=== PATIENT | female | born 1985 | race Caucasian/White ===

== ENCOUNTER 2020-09-27 07:43 | Emergency (ER) | payer BC ==
[~2020-09-27] VITALS: Ht 157.5 cm; Wt 41.7 kg
[2020-09-27] MEDS ORDERED: SODIUM CHLORIDE 0.9% 1000ML 1,000 ML IV STA (08:02)
[2020-09-27] MEDS ORDERED: PANTOPRAZOLE 40 MG 10ML VIAL IV STA (08:02)
[2020-09-27] MEDS ORDERED: ONDANSETRON HCL INJ 2MG/ML 2ML 2 MG/ML VIAL IV STA (08:02)
[2020-09-27] MEDS ORDERED: DIPHENHYDRAMINE HCL INJ 50 MG/ML VIAL IV ONE (08:15)
[2020-09-27] MEDS ORDERED: METOCLOPRAMIDE HCL 10 MG/2ML VIAL IV ONE (08:15)
[2020-09-27] MEDS ORDERED: SODIUM CHLORIDE 0.9% 50ML 50 ML ONE (08:33)
[2020-09-27] MEDS ORDERED: IOPAMIDOL 370 MG/ML 200 ML INFUS..BTL INJ ONE (08:33)
[2020-09-27 08:35] LABS: BASOPHILS % 0.1 % (0.0-1.0); HEMATOCRIT 40.1 % (34.2-44.1); LYMPHOCYTES # (AUTO) 0.7 (1.0-3.2); LYMPHOCYTES % 7.9 % (18.0-39.1); MEAN CORPUSCULAR HEMOGLOBIN 30.5 pg (28-32); MEAN CORPUSCULAR HGB CONC 34.9 g/dL (31-35); MEAN CORPUSCULAR VOLUME 87.4 fL (81-99); MONOCYTES # (AUTO) 0.2 (0.2-0.8); MONOCYTES % 2.5 % (4.4-11.3); NEUTROPHILS # (AUTO) 7.7 (2.1-6.9); NEUTROPHILS % 89.2 % (38.7-80.0); PLATELET COUNT 209 x10e3/uL (140-360); RED BLOOD COUNT 4.59 x10e6/uL (3.6-5.1); RED CELL DISTRIBUTION WIDTH 11.8 % (11.7-14.4)
[2020-09-27 08:45] LABS: CLARITY,URINE CLEAR (CLEAR); COLOR,URINE YELLOW (YELLOW); KETONES,URINE 2+ (NEGATIVE); LEUKOCYTE ESTERASE ,URINE NEGATIVE (NEGATIVE); NITRITE,URINE NEGATIVE (NEGATIVE); PROTEIN,URINE DIPSTICK 2+ (NEGATIVE); URINE UROBILINOGEN 0.2 mg/dL (0.2 - 1)
[2020-09-27 08:57] LABS: ALANINE AMINOTRANSFERASE 8 IU/L (0-55); ALBUMIN 4.7 g/dL (3.5-5.0); ALBUMIN/GLOBULIN RATIO 1.6 (0.8-2.0); ALKALINE PHOSPHATASE 56 IU/L (40-150); ANION GAP 18.3 mmol/L (8-16); BLOOD UREA NITROGEN 12 mg/dL (7-26); BUN/CREATININE RATIO 16 (6-25); CALCIUM 9.4 mg/dL (8.4-10.2); CARBON DIOXIDE 22 mmol/L (22-29); CHLORIDE 99 mmol/L (98-107); CREATINE KINASE 38 IU/L (29-168); CREATININE, SERUM 0.74 mg/dL (0.57-1.11); EST GLOMERULAR FILTRATION RATE > 60 ML/MIN (60-); GLUCOSE 128 mg/dL (74-118); POTASSIUM 3.3 mmol/L (3.5-5.1); SODIUM 136 mmol/L (136-145)
[2020-09-27 09:02] LABS: BACTERIA,URINE RARE /HPF; EPITHELIAL CELLS,URINE FEW /LPF; RBC,URINE 0-5 /HPF (0-5)
[2020-09-27] MEDS ORDERED: LACTATED RINGER'S 1,000 ML INJ ONE (10:45)
[2020-09-27] MEDS ORDERED: ZOFRAN4 MG SL (11:21)
[2020-09-27] MEDS ORDERED: REGLAN10 MG PO (11:21)
[2020-09-27] MEDS ORDERED: PANTOPRAZOLE SO40 MG PO (11:21)
[2020-09-27 12:38] VITALS: BP 91/57
== END 2020-09-27 12:40 | disposition home or self-care (01) ==
LOC: ER 08:00
DX: R11.2 Nausea with vomiting, unspecified (principal); R19.7 Diarrhea, unspecified; R10.11 Right upper quadrant pain
CPT/HCPCS: 36415; 74177; 80053; 81001; 81025; 82550; 82553; 83690; 84484; 85025; 99284; C9113; J1200; J2405; J2765; J7030; J7121; Q9967

== ENCOUNTER 2020-11-26 14:12 | Emergency (ER) | payer BC ==
[~2020-11-26] VITALS: Ht 157.5 cm; Wt 41.7 kg
[~2020-11-26 14:12] MED LIST: PANTOPRAZOLE SO40 MG PO; REGLAN10 MG PO; ZOFRAN4 MG SL
[2020-11-26] MEDS ORDERED: HALOPERIDOL LACTATE 5 MG/ML VIAL IV ONE (15:45)
[2020-11-26] MEDS ORDERED: HALOPERIDOL LACTATE 5 MG/ML VIAL ONE (15:50)
[2020-11-26 16:08] LABS: BASOPHILS % 0.1 % (0.0-1.0); HEMOGLOBIN 14.2 g/dL (12.0-16.0); LYMPHOCYTES # (AUTO) 0.6 (1.0-3.2); LYMPHOCYTES % 5.9 % (18.0-39.1); MEAN CORPUSCULAR HEMOGLOBIN 30.5 pg (28-32); MEAN CORPUSCULAR HGB CONC 34.6 g/dL (31-35); MONOCYTES # (AUTO) 0.4 (0.2-0.8); MONOCYTES % 3.3 % (4.4-11.3); NEUTROPHILS # (AUTO) 9.6 (2.1-6.9); NEUTROPHILS % 90.3 % (38.7-80.0); PLATELET COUNT 246 x10e3/uL (140-360); RED BLOOD COUNT 4.66 x10e6/uL (3.6-5.1); RED CELL DISTRIBUTION WIDTH 12.2 % (11.7-14.4)
[2020-11-26 16:40] LABS: ALANINE AMINOTRANSFERASE 7 IU/L (0-55); ALBUMIN 4.9 g/dL (3.5-5.0); ALBUMIN/GLOBULIN RATIO 1.3 (0.8-2.0); ALKALINE PHOSPHATASE 75 IU/L (40-150); ANION GAP 19.3 mmol/L (8-16); BLOOD UREA NITROGEN 14 mg/dL (7-26); BUN/CREATININE RATIO 19 (6-25); CALCIUM 9.8 mg/dL (8.4-10.2); CARBON DIOXIDE 24 mmol/L (22-29); CHLORIDE 99 mmol/L (98-107); CREATININE, SERUM 0.75 mg/dL (0.57-1.11); EST GLOMERULAR FILTRATION RATE > 60 ML/MIN (60-); GLUCOSE 90 mg/dL (74-118); POTASSIUM 3.3 mmol/L (3.5-5.1); SODIUM 139 mmol/L (136-145)
[2020-11-26] MEDS ORDERED: HALDOL1 MG PO (17:03)
== END 2020-11-26 17:47 | disposition home or self-care (01) ==
LOC: ER 16:22
DX: R11.2 Nausea with vomiting, unspecified (principal); R50.9 Fever, unspecified; R10.13 Epigastric pain
CPT/HCPCS: 36415; 80053; 83690; 84702; 85025; 99284; J1630

== ENCOUNTER 2021-06-13 07:41 | Emergency (ER) | payer BC ==
[~2021-06-13] VITALS: Ht 157.5 cm; Wt 41.7 kg
[~2021-06-13 07:41] MED LIST changes: +HALDOL1 MG PO
[2021-06-13] MEDS ORDERED: SODIUM CHLORIDE 0.9% 1000ML 1,000 ML IV STA (07:45)
[2021-06-13] MEDS ORDERED: ONDANSETRON HCL INJ 2MG/ML 2ML 2 MG/ML VIAL IV PRN (07:45)
[2021-06-13] MEDS ORDERED: PHENERGAN SUPP25 MG RC (07:58)
[2021-06-13] MEDS ORDERED: PROMETHAZINE 12.5MG/ NACL 0.9% 12.5 MG/50 ML BAG IV ONE (08:00)
[2021-06-13] MEDS ORDERED: PANTOPRAZOLE SO40 MG PO (08:00)
[2021-06-13] MEDS ORDERED: HALOPERIDOL1 MG PO (08:05)
[2021-06-13] MEDS ORDERED: HALOPERIDOL LACTATE 5 MG/ML VIAL IV ONE (08:15)
[2021-06-13 08:31] LABS: BASOPHILS % 0.3 % (0.0-1.0); HEMATOCRIT 39.4 % (34.2-44.1); HEMOGLOBIN 13.5 g/dL (12.0-16.0); LYMPHOCYTES # (AUTO) 0.7 (1.0-3.2); LYMPHOCYTES % 5.9 % (18.0-39.1); MEAN CORPUSCULAR HEMOGLOBIN 30.8 pg (28-32); MEAN CORPUSCULAR HGB CONC 34.3 g/dL (31-35); MEAN CORPUSCULAR VOLUME 89.7 fL (81-99); MONOCYTES # (AUTO) 0.3 (0.2-0.8); NEUTROPHILS % 90.4 % (38.7-80.0); PLATELET COUNT 225 x10e3/uL (140-360); RED BLOOD COUNT 4.39 x10e6/uL (3.6-5.1); RED CELL DISTRIBUTION WIDTH 11.9 % (11.7-14.4)
[2021-06-13 08:55] LABS: ALBUMIN 4.7 g/dL (3.5-5.0); ALBUMIN/GLOBULIN RATIO 1.4 (0.8-2.0); ANION GAP 17.7 mmol/L (8-16); CALCIUM 9.8 mg/dL (8.4-10.2); CREATININE, SERUM 0.89 mg/dL (0.57-1.11); POTASSIUM 3.7 mmol/L (3.5-5.1)
[2021-06-13 10:04] LABS: AMPHETAMINES SCREEN,URINE NEGATIVE (NEGATIVE); BENZODIAZEPINES SCREEN,URINE NEGATIVE (NEGATIVE); PHENCYCLIDINE SCREEN,URINE NEGATIVE (NEGATIVE)
[2021-06-13 10:05] LABS: COLOR,URINE YELLOW (YELLOW)
[2021-06-13 10:06] LABS: CLARITY,URINE SL CLOUDY (CLEAR); KETONES,URINE 2+ (NEGATIVE); LEUKOCYTE ESTERASE ,URINE NEGATIVE (NEGATIVE); NITRITE,URINE NEGATIVE (NEGATIVE); PROTEIN,URINE DIPSTICK NEGATIVE (NEGATIVE); URINE UROBILINOGEN 0.2 mg/dL (0.2 - 1)
[2021-06-13 10:26] LABS: BACTERIA,URINE FEW /HPF; EPITHELIAL CELLS,URINE MANY /LPF; WBC,URINE (MAN) 0-5 /HPF (0-5)
[2021-06-13 10:29] VITALS: BP 106/61
== END 2021-06-13 10:31 | disposition home or self-care (01) ==
LOC: ER 07:47
DX: R11.2 Nausea with vomiting, unspecified (principal); R19.7 Diarrhea, unspecified; R10.13 Epigastric pain; Z88.6 Allergy status to analgesic agent; Z88.0 Allergy status to penicillin; Z90.49 Acquired absence of other specified parts of digestive tract
CPT/HCPCS: 36415; 80053; 80307; 81001; 83690; 84702; 85025; 99284; J1630; J7030

== ENCOUNTER 2024-02-21 04:39 | Emergency (ER) | payer BC ==
[~2024-02-21] VITALS: Ht 157.5 cm; Wt 41.7 kg
[~2024-02-21 04:39] MED LIST changes: +HALOPERIDOL1 MG PO; +ONDANSETRON ODT4 MG PO; +PHENERGAN SUPP25 MG RC
[2024-02-21] MEDS: ONDANSETRON HCL INJ 2MG/ML 2ML 2 MG/ML VIAL IV STA (05:30)
[2024-02-21] MEDS: SODIUM CHLORIDE 0.9% 1000ML 1,000 ML IV ONE (05:31)
[2024-02-21] MEDS: METOCLOPRAMIDE HCL 10 MG/2ML VIAL IV ONE (07:35)
[2024-02-21 08:17] VITALS: TEMP 98.7
[2024-02-21] MEDS: POTASSIUM CHLORIDE 20MEQ/100ML 100 ML IV ONE (08:17)
[2024-02-21] MEDS ORDERED: PROMETHAZINE HC25 M1 PO (11:16)
[2024-02-21 11:17] VITALS: PULSE 65; RESP 14; O2SAT 98
== END 2024-02-21 11:33 | disposition home or self-care (01) ==
LOC: FSED 05:09
DX: R11.2 Nausea with vomiting, unspecified (principal); K52.9 Noninfective gastroenteritis and colitis, unspecified; E87.6 Hypokalemia; K29.70 Gastritis, unspecified, without bleeding; R73.9 Hyperglycemia, unspecified
CPT/HCPCS: 74176; 80048; 80076; 81025; 85025; 99284; J2405; J2765; J3480; J7030

== ENCOUNTER 2024-12-11 00:23 | Inpatient (IN) | payer BC ==
[2024-12-11] VITALS (7 sets, daily range): BP systolic 101–106; BP diastolic 52–62; PULSE 60–90; RESP 15–20; TEMP 98.4–100.6; O2SAT 96–100
[~2024-12-11] VITALS: Ht 157.5 cm; Wt 41.7 kg
[~2024-12-11 00:23] MED LIST changes: +PROMETHAZINE HC25 M1 PO
[2024-12-11] MEDS ORDERED: MAGNESIUM/ALUMINUM/SIMETHICONE 30 ML UDC PO STA (00:31)
[2024-12-11] MEDS ORDERED: LIDOCAINE VISC 2% SOLN 15 ML UDC PO STA (00:31)
[2024-12-11] MEDS ORDERED: BELLADONNA ALK/PHENOBARBITAL 5 ML UDC PO ONE (00:45)
[2024-12-11 01:22] LABS: BASOPHILS % 0.3 % (0.0-1.0); HEMATOCRIT 42.1 % (34.2-44.1); HEMOGLOBIN 14.9 g/dL (12.0-16.0); LYMPHOCYTES # (AUTO) 0.9 (1.0-3.2); LYMPHOCYTES % 16.1 % (18.0-39.1); MEAN CORPUSCULAR HEMOGLOBIN 29.9 pg (28-32); MEAN CORPUSCULAR HGB CONC 35.4 g/dL (31-35); MEAN CORPUSCULAR VOLUME 84.5 fL (81-99); MONOCYTES # (AUTO) 0.3 (0.2-0.8); MONOCYTES % 4.3 % (4.4-11.3); NEUTROPHILS # (AUTO) 4.6 (2.1-6.9); NEUTROPHILS % 78.3 % (38.7-80.0); PLATELET COUNT 114 x10e3/uL (140-360); RED BLOOD COUNT 4.98 x10e6/uL (3.6-5.1); RED CELL DISTRIBUTION WIDTH 11.9 % (11.7-14.4); WHITE BLOOD COUNT 5.83 x10e3/uL (4.8-10.8)
[2024-12-11] MEDS: ONDANSETRON HCL INJ 2MG/ML 2ML 2 MG/ML VIAL IV STA (01:22)
[2024-12-11] MEDS: FAMOTIDINE 20 MG/2 ML VIAL IV STA (01:22)
[2024-12-11] MEDS: SODIUM CHLORIDE 0.9% 1000ML 2,000 ML IV STA (01:23)
[2024-12-11 01:24] LABS: BILIRUBIN,URINE 3+ (NEGATIVE); CLARITY,URINE CLOUDY (CLEAR); COLOR,URINE AMBER (YELLOW); GLUCOSE, URINE NEGATIVE (NEGATIVE); KETONES,URINE 2+ (NEGATIVE); LEUKOCYTE ESTERASE ,URINE NEGATIVE (NEGATIVE); NITRITE,URINE NEGATIVE (NEGATIVE); PH,URINE 6 (5 - 7); PROTEIN,URINE DIPSTICK >=300 (NEGATIVE); URINE UROBILINOGEN 1 mg/dL (0.2 - 1)
[2024-12-11 01:29] LABS: PREGNANCY TEST, URINE NEGATIVE (NEGATIVE)
[2024-12-11 01:32] LABS: CORONAVIRUS COVID-19 AG NEGATIVE (NEGATIVE); INFLUENZA A AG NEGATIVE (NEGATIVE); INFLUENZA B AG NEGATIVE (NEGATIVE)
[2024-12-11 01:33] LABS: ALBUMIN 3.9 g/dL (3.5-5.0); ALBUMIN/GLOBULIN RATIO 1.1 (0.8-2.0); ANION GAP 22.9 mmol/L (8-16); CALCIUM 9.4 mg/dL (8.4-10.2); CREATININE, SERUM 0.88 mg/dL (0.57-1.11); TOTAL PROTEIN 7.6 g/dL (6.5-8.1)
[2024-12-11 01:35] LABS: BACTERIA,URINE MANY /HPF; EPITHELIAL CELLS,URINE MANY /LPF; RENAL EPITHELIAL CELLS,URINE FEW; TRANSITIONAL EPI CELLS,URINE MODERATE; WBC,URINE (MAN) >50 /HPF (0-5)
[2024-12-11 01:51] LABS: POTASSIUM 2.9 mmol/L (3.5-5.1)
[2024-12-11] MEDS: POTASSIUM CHLORIDE 20MEQ/100ML 100 ML IV STA (03:20)
[2024-12-11] MEDS: SODIUM CHLORIDE 0.9% 1000ML 1,000 ML IV SCH (03:22)
[2024-12-11] MEDS: ONDANSETRON HCL INJ 2MG/ML 2ML 2 MG/ML VIAL IV PRN (03:33)
[2024-12-11] MEDS: PROMETHAZINE 25MG/ NS 50ML (IV) IV ONE (05:38)
[2024-12-11] MEDS ORDERED: NON-FORMULARY MEDICATION (Ondansetron Hcl* (Zofran*) 4 MG) SL PRN (12:15)
[2024-12-11] MEDS: SOD CHL 0.45%/POT CHL 20MEQ 1,000 ML IV ONE (15:00)
[2024-12-11] MEDS: PROMETHAZINE HCL 25 MG SUPP PR PRN (15:37)
[2024-12-11] MEDS ORDERED: PROMETHAZINE HCL 25 MG TAB PO SCH (18:00)
[2024-12-11] MEDS: SUCRALFATE 1 GM/10 ML SUSP PO SCH (18:05)
[2024-12-11] MEDS: METOCLOPRAMIDE HCL 10 MG/2ML VIAL IV SCH (18:05)
[2024-12-11] MEDS: ATORVASTATIN 20 MG TAB PO SCH (21:00)
[2024-12-12] VITALS (9 sets, daily range): BP systolic 85–108; BP diastolic 55–68; PULSE 51–91; RESP 16–18; TEMP 97.9–100.5; O2SAT 95–100
[2024-12-12] MEDS: ACETAMINOPHEN 325 MG TAB PO PRN (05:22)
[2024-12-12 05:47] LABS: BASOPHILS % 0.5 % (0.0-1.0); HEMATOCRIT 32.9 % (34.2-44.1); HEMOGLOBIN 11.7 g/dL (12.0-16.0); LYMPHOCYTES # (AUTO) 1.1 (1.0-3.2); LYMPHOCYTES % 25.1 % (18.0-39.1); MEAN CORPUSCULAR HEMOGLOBIN 30.1 pg (28-32); MEAN CORPUSCULAR HGB CONC 35.6 g/dL (31-35); MEAN CORPUSCULAR VOLUME 84.6 fL (81-99); MONOCYTES # (AUTO) 0.2 (0.2-0.8); NEUTROPHILS # (AUTO) 2.9 (2.1-6.9); NEUTROPHILS % 68.5 % (38.7-80.0); PLATELET COUNT 127 x10e3/uL (140-360); RED BLOOD COUNT 3.89 x10e6/uL (3.6-5.1); RED CELL DISTRIBUTION WIDTH 11.9 % (11.7-14.4); WHITE BLOOD COUNT 4.23 x10e3/uL (4.8-10.8)
[2024-12-12 06:11] LABS: ALANINE AMINOTRANSFERASE 29 IU/L (0-55); ALBUMIN 2.8 g/dL (3.5-5.0); ALBUMIN/GLOBULIN RATIO 0.9 (0.8-2.0); ALKALINE PHOSPHATASE 80 IU/L (40-150); ANION GAP 14.4 mmol/L (8-16); BILIRUBIN,TOTAL 0.5 mg/dL (0.2-1.2); BLOOD UREA NITROGEN < 5 mg/dL (7-26); BUN/CREATININE RATIO 8 (6-25); CALCIUM 7.9 mg/dL (8.4-10.2); CARBON DIOXIDE 21 mmol/L (22-29); CHLORIDE 105 mmol/L (98-107); CREATININE, SERUM 0.61 mg/dL (0.57-1.11); EST GLOMERULAR FILTRATION RATE 116 ML/MIN (>=60); GLUCOSE 84 mg/dL (74-118); POTASSIUM 3.4 mmol/L (3.5-5.1); SODIUM 137 mmol/L (136-145); TOTAL PROTEIN 5.8 g/dL (6.5-8.1)
[2024-12-12 08:46] LABS: BAND NEUTROPHILS % (MANUAL) 1 %; LYMPHOCYTES % (MANUAL) 15 % (19-48); MONOCYTES % (MANUAL) 10 % (3.4-9.0); NEUTROPHILS % (MANUAL) 72 % (40-74); REACTIVE LYMPHOCYTES 2
[2024-12-12 08:47] LABS: PLATELET ESTIMATE SLIGHTLY DECREASED; PLATELET MORPHOLOGY COMMENT NORMAL; RBC MORPHOLOGY COMMENT NORMAL
[2024-12-12] MEDS: POTASSIUM CHLORIDE 20 MEQ TAB CR PO STA (23:55)
[2024-12-13 03:39] VITALS: BP 105/65; PULSE 69; RESP 17; TEMP 98.2; O2SAT 96
[2024-12-13 05:36] LABS: BASOPHILS % 0.5 % (0.0-1.0); HEMATOCRIT 35.2 % (34.2-44.1); HEMOGLOBIN 12.4 g/dL (12.0-16.0); LYMPHOCYTES # (AUTO) 1.4 (1.0-3.2); LYMPHOCYTES % 24.7 % (18.0-39.1); MEAN CORPUSCULAR HEMOGLOBIN 29.9 pg (28-32); MEAN CORPUSCULAR HGB CONC 35.2 g/dL (31-35); MEAN CORPUSCULAR VOLUME 84.8 fL (81-99); MONOCYTES # (AUTO) 0.3 (0.2-0.8); MONOCYTES % 5.5 % (4.4-11.3); NEUTROPHILS % 68.4 % (38.7-80.0); PLATELET COUNT 143 x10e3/uL (140-360); RED BLOOD COUNT 4.15 x10e6/uL (3.6-5.1); RED CELL DISTRIBUTION WIDTH 11.8 % (11.7-14.4); WHITE BLOOD COUNT 5.78 x10e3/uL (4.8-10.8)
[2024-12-13 06:07] LABS: ANION GAP 11.7 mmol/L (8-16); BLOOD UREA NITROGEN < 5 mg/dL (7-26); CALCIUM 8.1 mg/dL (8.4-10.2); CARBON DIOXIDE 26 mmol/L (22-29); CHLORIDE 100 mmol/L (98-107); CHOL/HDL RATIO 4.9 (3.0-3.6); CHOLESTEROL 97 MD/DL (0-199); CREATININE, SERUM 0.63 mg/dL (0.57-1.11); EST GLOMERULAR FILTRATION RATE 115 ML/MIN (>=60); GLUCOSE 110 mg/dL (74-118); HDL CHOLESTEROL 20 MG/DL (40-60); LDL CHOLESTEROL 51 MG/DL (60-130); SODIUM 135 mmol/L (136-145); TRIGLYCERIDES 128 MG/DL (0-149)
[2024-12-13 06:15] LABS: BUN/CREATININE RATIO 8 (6-25)
[2024-12-13 06:16] LABS: POTASSIUM 2.7 mmol/L (3.5-5.1)
[2024-12-13 08:00] VITALS: BP 105/59; PULSE 66; RESP 18; TEMP 98.4; O2SAT 98
[2024-12-13 08:11] LABS: BAND NEUTROPHILS % (MANUAL) 4 %; LYMPHOCYTES % (MANUAL) 21 % (19-48); MONOCYTES % (MANUAL) 3 % (3.4-9.0); NEUTROPHILS % (MANUAL) 70 % (40-74); PLATELET ESTIMATE ADEQUATE; PLATELET MORPHOLOGY COMMENT NORMAL; REACTIVE LYMPHOCYTES 2
[2024-12-13] MEDS: POTASSIUM CHLORIDE 20 MEQ TAB CR PO ONE ×2 (08:18→11:51)
[2024-12-13] MEDS: POTASSIUM CHLORIDE 20MEQ/100ML 100 ML IV ONE (08:19)
[2024-12-13 08:30] VITALS: BP 105/59; PULSE 66; RESP 18; TEMP 98.4; O2SAT 98
[2024-12-13] MEDS ORDERED: Sucralfate Susp 1GM/10ML PO (11:28)
[2024-12-13] MEDS ORDERED: PANTOPRAZOLE SO40 MG PO (11:28)
[2024-12-13] MEDS ORDERED: METOCLOPRAMIDE10 MG PO (11:28)
[2024-12-13] MEDS ORDERED: KLONOPIN1 MG PO (11:28)
[2024-12-13] MEDS ORDERED: PHENERGAN SUPP25 MG PR (11:28)
[2024-12-14 16:24] LABS: GLIADIN AB IGA 2 units (0-19)
[2024-12-15 17:11] LABS: ENDOMYSIAL ANTIBODIES, IGA Negative (Negative)
[2024-12-15 17:21] LABS: TISSUE TRANSGLUTAMINASE IGA AB <2 U/mL (0-3)
[2024-12-15 17:22] LABS: IMMUNOGLOBULIN A 126 mg/dL (87-352)
== END 2024-12-13 12:45 | disposition home or self-care (01) | DRG 640 ==
LOC: ER 00:32 → ERHOLD 01:33 → MED/SURG 10:13
PROVIDERS: ADMIT Internal Medicine; ATTEND Internal Medicine
DX: E86.0 Dehydration (principal); E43 Unspecified severe protein-calorie malnutrition; R64 Cachexia; Z68.1 Body mass index [BMI] 19.9 or less, adult; E87.6 Hypokalemia; K21.9 Gastro-esophageal reflux disease without esophagitis; R63.4 Abnormal weight loss; R11.2 Nausea with vomiting, unspecified; R51.9 Headache, unspecified; Z11.52 Encounter for screening for COVID-19; Z90.49 Acquired absence of other specified parts of digestive tract; Z88.5 Allergy status to narcotic agent; Z88.0 Allergy status to penicillin
CPT/HCPCS: 36415; 80048; 80053; 80061; 81001; 81025; 82784; 83516; 83690; 84443; 85025; 86256; 87086; 99284; J0696; J1308; J2405; J2470; J2550; J2765; J3480; J7030